=== PATIENT | male | born 1930 | race Caucasian/White ===

== ENCOUNTER 2019-08-21 02:16 | Observation (INO) | payer MEDICARE, OTHER ==
[~2019-08-21] VITALS: Ht 175.3 cm; Wt 96.4 kg
--- NOTE | ~2019-08-21 | OP ---
PATIENT NAME: FRANDY HUMPHREY MEDICAL RECORD: [id number] :[birth year] LOCATION:D.M2 D.2117 ADMISSION DATE:08/21/19 SURGEON: THANIA WHITFIELD MD DATE OF OPERATION: PROCEDURES: Left heart catheterization, selective coronary angiography, and right femoral artery approach. CATHETERS: A 5-Yoruba sheath, 5/4 left and right Freida, 5/4 pig. The procedure was well tolerated. The patient was returned to the munguia. Sheath removed. ExoSeal device placed. FINDINGS: Left ventriculography in 30-degree WELLS view: Normal wall motion, normal systolic function. CORONARY ANATOMY: LEFT MAIN: Left main is free of disease. LAD: Free of disease in the diagonal system. CIRCUMFLEX: Circumflex is free of disease in the marginal system. RIGHT CORONARY ARTERY: Dominant artery, gives rise to PDA, free of disease. IMPRESSION: Normal LV systolic function. Normal coronary anatomy. TRANSINT:[id number] Voice Confirmation ID: [id number] DOCUMENT ID: [id number] THANIA WHITFIELD MD CC: [id number] DICTATION DATE: 08/21/19 1448 REWRITE EDITOR: 08/22/19 0050 DIS IN 08/21/19 [facility] [address] [place] [id number]
--- NOTE | ~2019-08-21 | CN ---
PATIENT NAME:FRANDY KUNZ MEDICAL RECORD: [id number] : [birth year] LOCATION:D. D.2117 ADMIT DATE: 08/21/19 ACCOUNT: [id number] CONSULTING PHYSICIAN: THANIA WHITFIELD MD REFERRING PHYSICIAN: ANY DE LA GARZA MD DATE OF CONSULTATION: 08/21/2019 HISTORY OF PRESENT ILLNESS: Frandy Kunz is an 89-year-old gentleman with no known history of coronary artery disease. He has a history of arrhythmias, status post pacemaker placement, has a history of hypertension, hyperlipidemia, diabetes mellitus, admitted with angina, onset of rest, chest tightness, pressure radiating to the jaw, some dyspnea, questionable queasiness. We are asked to see him concerning his cardiovascular status. PAST MEDICAL HISTORY: Includes: 1. History of hypertension. 2. Sick sinus syndrome, status post pacemaker placement. 3. Hyperlipidemia. 4. Diabetes mellitus. ALLERGIES: KEFLEX, AMIODARONE, DILTIAZEM. SOCIAL HISTORY: Nonsmoker, nondrinker. Easily takes care of all his ADLs. Stays quite active, feeding horses. REVIEW OF SYSTEMS: The patient reports easy bruising but reports no swollen glands. The patient reports no fever, no night sweats, no significant weight gain, no significant weight loss. No significant exercise tolerance. The patient reports no dry eyes, no irritation, no vision change. Patient reports no difficulty hearing and no ear pain. Patient reports no frequent nose bleeds or nose and sinus problems. Patient reports on arm pain on exertion. No shortness of breath while lying down. No history of heart murmur. Patient reports no cough, no wheezing or coughing up blood. Patient reports no abdominal pain, no vomiting. Normal appetite. No diarrhea and not vomiting blood. No nausea and no constipation. Patient reports no incontinence. No difficulty urinating. No hematuria. No increased frequency. Patient reports no muscle aches. No weakness, no arthralgias, no back pain. No swelling of the extremities. Patient reports no abnormal mole, no jaundice, no rashes. Reports no loss of consciousness. No weakness and no numbness. No seizures, dizziness, or headaches. The patient reports no depression, no sleep disturbance, feeling safe in a relationship and no alcohol abuse. Patient reports on fatigue. Reports no runny nose or sinus pressure. No itching, no hives, and no frequent sneezing. PHYSICAL EXAMINATION: GENERAL: Pleasant gentleman, appears younger than stated age. VITAL SIGNS: Blood pressure 118/70, pulse 74 and regular. HEENT: Normocephalic, atraumatic. NECK: No bruits noted. HEART: Regular. LUNGS: Melgar clear. ABDOMEN: Soft, nontender. EXTREMITIES: Pulse 2+ with no edema. DIAGNOSTIC DATA: ECG shows nonspecific ST-T changes. CONSULT REPORT [id number] FRANDY KUNZ IMPRESSION: Acute coronary syndrome, multiple risk factors. PLAN: For angiography, intervention based on above. TRANSINT:[id number] Voice Confirmation ID: [id number] DOCUMENT ID: [id number] THANIA WHITFIELD MD CC: [id number] DICTATION DATE: 08/21/19 1050 STORM WINDOW INSTALLER: 08/21/19 1519 ADM IN [place] [id number] [place] [id number]
--- NOTE | ~2019-08-21 | HEMODYNAMI ---
PATIENT:FRANDY HUMPHREY MEDICAL RECORD: [id number] : [birth year] [facility] ADMISSION DATE: 08/21/19 Generatedon:08/21/201914:45 Patient name: FRANDY HUMPHREY Patient #: [id number] SSN: : 1930 Date of study: 08/21/2019 Page: Of Hemodynamic Procedure Report Patient Data Patient Demographics Procedure consent was obtained First Name: FRANDY Gender: Male Last Name: KAM : 1930 Patient #: [id number] Age: 89 year(s) Race: Unknown Additional ID: [id number] Contact details [address]: [address] [place] [address] State: [place] City: [place] Zip code: [address] Admission Admission Data Admission Date: 08/21/2019 Admission Time: 2:26 Arrival Date: 08/21/2019 Arrival Time: 2:26 Admit Source: Emergency Insurance Payor: Medicare department [facility] #: [id number] Room #: D.2117 Height (in.): 69.29 BSA: 2.12 (m2) Height (cm.): 176 BMI: 30.99 (kg/m2) Weight (lbs.): 211.64 Weight (kg.): 96 Procedure Procedure Types Cath Procedure Diagnostic Procedure [facility] w/Coronaries Sedation Charges Moderate Sedation up to 15 minutes Procedure Description Procedure Date Procedure Date: 08/21/2019 Procedure Start Time: 14:26 Procedure End Time: 14:40 Procedure Staff Name Function Ace Osei MD Performing Physician Madhuri Sauceda RT Monitor Rupali Kern RT Scrub Allegra Fournier RN Nurse Procedure Data Cath Procedure Fluoroscopy Diagnostic fluoroscopy Total fluoroscopy Time: 1.9 time: 1.9 min min Diagnostic fluoroscopy Total fluoroscopy dose: 533 dose: 533 mGy mGy Contrast Material Contrast Material Type Amount (ml) Isovue 300 48 Entry Location Entry Primary Successful Side Size Upsize Upsize Entry Closure Succes sful Closure Location (Fr) 1 (Fr) 2 (Fr) Remarks Device Remarks Femoral Right 5 Fr Exoseal artery Estimated blood loss: 5 ml Diagnostic catheters Device Type Used For End Catheter Placement MULTIPACK JL 4.0 5Fr Left Coronary catheter Angiography MULTIPACK 3DRC 5Fr Right Coronary catheter Angiography MULTIPACK Pigtail 5 Fr LV Angiography catheter Procedure Complications No complications Procedure Medications Medication Administration Route Dosage 0.9% NaCl I.V. 100 ml/hr Oxygen etCO2 Nasal cannula 2 l/min Lidocaine 2% added to field 20 Heparin Flush Bag added to field 2 bags (1000units/500ml NS) Versed I.V. 2 mg Fentanyl I.V. 50 mcg Hemodynamics Rest BSA: 2.12 (m2) O2 Consumption: Estimated: 253.36 (ml/min) O2 Consumption indexed : Estimated:119.51 (ml/min/m) Heart Rate: 87 (bpm) Pressure Samples Time Site Value (mmHg) Purpose Heart Use Rate(bpm) 14:33 LV 129/14,13 Snapshot 107 14:34 AO 115/54(78) Pullback 70 14:34 LV 114/10,13 Pullback 70 Gradients Valve Time Site 1 Site 2 Mean SEP/DFP Peak To Heart Use (mmHg) (sec/min) Peak Rate (mmHg) (bpm) Aortic 14:34 LV AO 0 17 0 70 114/10,13 115/54(78) Calculations Valve P-P Mean Valve Index Valve Source Name Gradient Area Flow (cm2) Aortic 0 0 0 0 Snapshots Pre Cath Intra NCS Post Cath Vital Signs Time Heart Resp SPO2 etCO2 NIBP (mmHg) Rhythm Pain Sedation Rate (ipm) (%) (mmHg) Status Level (bpm) 14:13:59 60 14 96 10 133/74(99) NSR 0 (11) 10(A) , No pain 14:18:54 70 12 98 10 130/82(113) NSR 0 (11) 10(A) , No pain 14:23:08 69 15 97 10 120/77(101) NSR 0 (11) 10(A) , No pain 14:27:20 61 12 93 0 114/68(94) NSR 0 (11) 10(A) , No pain 14:31:30 68 16 93 11.8 107/69(89) NSR 0 (11) 10(A) , No pain 14:35:36 69 10 94 14 116/72(92) NSR 0 (11) 10(A) , No pain 14:39:44 97 19.9 123/76(95) NSR 0 (11) 10(A) , No pain Medications Time Medication Route Dose Verified Delivered Reason Notes Eff ectiveness by by 14:13:01 0.9% NaCl I.V. 100 Ace Allegra used for ml/hr FarnazFrandy Fournier procedure MD RODRÍGUEZ 14:13:10 Oxygen etCO2 2 Ace Allegra used for Nasal l/min Claiborne Shantanu procedure cannula MD RODRÍGUEZ 14:13:16 Lidocaine 2% added 20ml Ace Ace for local to vial [facility] anesthetic field MD WEISS 14:13:20 Heparin Flush added 2 Ace Ace used for Bag to bags [facility] procedure (1000units/500ml field MD WEISS NS) 14:24:41 Versed I.V. 2 mg [address] Frandy Fournier sedation MD RODRÍGUEZ 14:24:51 Fentanyl I.V. 50 Ace Allegra for mcg St Frandy Fournier sedation MD RODRÍGUEZsoup person Log Time Note 13:52:16 Diagnostic Cath Status : Elective 13:56:59 Arrival Date: 08/21/2019 2:26:00 AM 13:57:29 Insurance Payor : Medicare 13:57:59 Admit Source: Emergency department 13:58:06 Patient Height : 69.29 inches 13:58:11 Patient Weight : 211.64 lbs 14:05:29 Rupali CHAMBERLAIN(R) sent for patient. Start room use. 14:05:30 Time tracking: Regular hours (M-F 7:00 - 5:00) 14:05:37 Plan of Care:Hemodynamics will remain stable., Cardiac rhythm will remain stable., Comfort level will be maintained., Respiratory function will remain adequate., Patient/ family verbilizes understanding of procedure., Procedure tolerated without complication., Recovers from procedure without complications.. 14:05:43 Patient received from Med II to [facility] 2 Alert and oriented. Tansferred to table in Supine position. 14:05:47 Signed procedure consent form obtained from patient. 14:05:48 Correct patient and procedure confirmed by team. 14:05:49 ECG and BP/O2 sat monitors applied to patient. 14:12:52 Vital chart was started 14:13:01 0.9% NaCl 100 ml/hr I.V. was administered by Allegra Fournier RN; used for procedure; Verbal order read back and verified. 14:13:10 Oxygen 2 l/min etCO2 Nasal cannula was administered by Allegra Fournier RN; used for procedure; Verbal order read back and verified. 14:13:16 Lidocaine 2% 20ml vial added to field was administered by Ace Osei MD; for local anesthetic; Verbal order read back and verified. 14:13:20 Heparin Flush Bag (1000units/500ml NS) 2 bags added to field was administered by Ace Osei MD; used for procedure; Verbal order read back and verified. 14:17:48 Full Disclosure recording started 14:18:31 H&P Date Dictated: 08/21/2019 New H&P dictated by physician.. 14:18:32 Pre-procedure instructions explained to patient. 14:18:33 Pre-op teaching completed and patient verbalized understanding. 14:18:34 Family in waiting room. 14:18:35 Patient NPO since Midnight. 14:18:38 Is the patient allergic to Iodine/contrast media? No. 14:18:39 Was the patient premedicated? Yes 14:18:45 Is patient on blood thinner?Yes 14:18:49 ACC The patient was administered the following blood thiners within the last 24 hours: Xarelto 14:18:52 Patient diabetic? Yes. 14:18:54 If diabetic: On Metformin? No 14:18:59 Previous problem with sedation/anesthesia? No ? 14:19:00 Snore? Yes 14:19:02 Deviated septum? No 14:19:03 Opens mouth fully? Yes 14:19:05 Sticks out tongue? Yes 14:19:10 Airway obstruction? No ? 14:19:21 Dentures? Yes OUT 14:19:27 Pre procedure: right dorsailis pedis pulse 2+ Normal; easily identifiable; not easily obliterated 14:19:30 Pre procedure: left dorsailis pedis pulse 2+ Normal; easily identifiable; not easily obliterated 14:19:33 Patient pain scale 0/10 ?. 14:19:40 IV patent on arrival in left forearm with 0.9% NaCl at [facility]. 14:19:42 Lab results completed and on chart. 14:23:20 Risk of Mortality: 1.9\ 14:23:25 Risk of blood transfusion: 2.3 14:23:30 Risk of YOHANNES: 8.5 14:23:37 Right groin area was prepped with chlora-prep and draped in sterile fashion 14:23:41 Alarms reviewed by R. N. 14:23:42 Sharps counted by scrub and verified by R.N. 14:23:43 Physician arrived 14::43 --------ALL STOP TIME OUT------ 14:23:44 Final Timeout: patient, procedure, and site verified with staff and physician. All members of the team are in agreement. 14:23:46 Right groin site verified by team. 14:23:50 Fire Safety Assessment: A--An alcohol-based skin anteseptic being used preoperatively., C--Open oxygen or nitrous oxide is being used., D--An ESU, laser, or fiber-optic light is being used. 14:23:53 Physical assessment completed. ASA score P 2 - A patient with mild systemic disease as per Ace Osei MD. 14:24:10 Maximum allowable contrast dose (3.7 X eGFR X 0.75)152 ml. 14:24:17 Sedation plan: IV Moderate Sedation Medication:Versed, Fentanyl 14:24:41 Versed 2 mg I.V. was administered by Allegra Fournier RN; for sedation; Verbal order read back and verified. 14:24:51 Fentanyl 50 mcg I.V. was administered by Allegra Fournier RN; for sedation; Verbal order read back and verified. 14:26:18 3a) 45-59 Moderately reduced kidney function. 14:26:34 Use device set Femoral Dx 14:26:36 ACIST Syringe (96747) opened to sterile field. 14:26:36 Bag Decanter () opened to sterile field. 14:26:37 Medline Cath Pack ([id number]) opened to sterile field. 14:26:38 ACIST Hand Control (74940) opened to sterile field. 14:26:39 ACIST Manifold (89897) opened to sterile field. 14:26:39 DIAGNOSTIC Multipack 5Fr catheter set (FB3416) opened to sterile field. 14:26:40 Tegaderm 4 x 4 (1626W) opened to sterile field. 14:26:41 SHEATH 5FR Greenwood (YUR663) opened to sterile field. 14:26:42 EMERALD Guide Wire (566-846) opened to sterile field. 14:26:47 Procedure started. 14:26:51 Local anesthetic to right femoral artery with Lidocaine 2% by Ace Osei MD.INITIAL ACCESS ONLY 14:27:00 A 5 Fr sheath was inserted into the Right Femoral artery 14:27:56 Baseline sample Acquired. 14:28:00 Zero performed for pressure channel P1 14:29:09 A MULTIPACK JL 4.0 5Fr catheter was advanced over the wire and used for Left Coronary Angiography. 14:29:44 LCA angiography performed. 14:29:48 Injector settings: Ml/sec: 3, Volume: 6, 14:31:25 Catheter removed. 14:31:29 A MULTIPACK 3DRC 5Fr catheter was advanced over the wire and used for Right Coronary Angiography. 14:31:55 RCA angiography performed. 14:31:58 Injector settings: Ml/sec: 3, Volume: 6, 14:32:01 ACCDominant side:Right 14:32:04 Catheter removed. 14:32:10 A MULTIPACK Pigtail 5 Fr catheter was advanced over the wire and used for LV Angiography. 14:33:37 LV hemodynamics recorded. 14:33:43 LV gram done using WELLS 14:33:50 EF : 55 % 14:34:01 Catheter removed. 14:34:04 EXOSEAL 5Fr (EX500) opened to sterile field. 14:35:45 Sheath removed intact; hemostasis achieved with Exoseal to the Right Femoral artery. 14:35:53 Procedure ended.(Physican Out) 14:37:09 Fluoroscopy time 01.90 minutes. 14:37:14 Fluoroscopy dose: 533 mGy 14:37:14 Flurop Dose total: 533 14:37:20 Dose Area Product 44051 mGy/cm. 14:37:40 Contrast amount:Isovue 300 48ml. 14:37:41 Maximum allowable dose exceeded? No. 14:37:42 Sharps counted by scrub and verified by R.N. 14:37:44 Insertion/operative site no bleeding no hematoma. 14:37:49 Post-op/insertion site Right Femoral artery dressed using a 4 x 4 and Tegaderm. 14:37:52 Post right femoral artery:stable 14:37:53 Post Procedure Pulses reassessed and unchanged 14:37:56 Post procedure rhythm: unchanged. 14:37:59 Estimated blood loss: 5 ml 14:38:04 Post procedure instruction explained to patient.Patient verbalizes understanding. 14:38:06 Patient needs reinforcement of post procedure teaching. 14:39:37 Procedure type changed to Cath procedure, Diagnostic procedure, LHC, C w/Coronaries, Sedation Charges, Moderate Sedation up to 15 minutes 14:39:39 Procedure and supply charges have been captured, reviewed, submitted and are correct. 14:39:46 Procedure Complication : No complications 14:39:49 Vital chart was stopped 14:39:52 [facility] Findings: MVD- MD will discuss options w/ pt 14:39:54 Operative report dictated upon procedure completion. 14:39:55 See physician's report for complete and final results. 14:39:59 Report given to Med II. 14:40:02 Patient transfered to Med II with Stretcher. 14:40:04 Procedure ended. 14:40:04 Full Disclosure recording stopped 14:40:17 End room use (Document Last) 14:44:46 End room use (Document Last) 14:45:05 End room use (Document Last) Device Usage Item Name Manufacture Quantity Catalog Hospital Part Current Minimal L ot# / Number Charge Number Stock Stock Serial# Code ACIST Acist 1 07191 085743 672687 652229 20 Syringe Medical (41591) Systems Inc Bag Microtek 1 2001S 440613 33706 863920 5 Decanter Medical Inc. () Medline Medline 1 [id number] 503065 43071 917062 5 Cath Pack ([id number]) ACIST Hand Acist 1 05619 076906 366291 648051 5 Control Medical (64564) Systems Inc ACIST Acist 1 84781 331185 464389 879314 5 Manifold Medical (75334) Systems Inc DIAGNOSTIC Cardinal 1 [id number] 463172 43627 820648 30 Merged With [facility] 5Fr catheter set (HA1097) Tegaderm 4 3M 1 1626W 719570 550365 913928 5 x 4 (1626W) SHEATH 5FR Terumo 1 ZCX992 341550 214433 658049 5 Greenwood (VXK444) EMERALD Cardinal 1 502-455 187976 295389 186455 5 Guide Wire Health (172-629) MULTIPACK Cardinal 1 187185 5 JL 4.0 5Fr Health catheter MULTIPACK Cardinal 1 644007 5 3DRC 5Fr Health catheter MULTIPACK Cardinal 1 847786 5 Pigtail 5 Health Fr catheter EXOSEAL 5Fr Cardinal 1 EX500 762906 644478 603565 10 (EX500) Health Signature Audit [place] Stage Time Signature Unsigned Intra-Procedure 08/21/2019 Madhuri Sauceda 2:44:46 PM RT(R) Intra-Procedure 08/21/2019 Allegra Fournier 2:45:05 PM RN Intra-Procedure 08/21/2019 Ace Alaniz 2:45:38 PM Frandy WEISS Signatures Performing Physician : Signature : Ace Osei MD Date : Time : Monitor : Madhuri Sauceda RT Signature : Date : Time : Nurse : Allegra Fournier RN Signature : Date : Time : [facility] [address] [place] [address]
[2019-08-21] MEDS ORDERED: FUROSEMIDE40 MG PO (02:21)
[2019-08-21] MEDS ORDERED: LIPITOR40 MG PO (02:21)
[2019-08-21] MEDS ORDERED: TOPROL XL25 MG PO (02:22)
[2019-08-21] MEDS ORDERED: ALBUTEROL SULF8.5 GM INH (02:22)
[2019-08-21] MEDS ORDERED: TREMFYA (02:22)
[2019-08-21] MEDS ORDERED: XARELTO20 MG PO (02:23)
[2019-08-21] MEDS ORDERED: GLUCOPHAGE500 MG PO (02:23)
[2019-08-21 02:29] LABS: BASOPHILS 0.2 % (0-2); EOSINOPHILS 1.1 % (0-7); HEMATOCRIT 40.6 % (42.0-54.0); HEMOGLOBIN 13.1 g/dL (13.5-17.5); IMMATURE GRANULOCYTES 0.3 % (0-5); LYMPHOCYTES 20.8 % (15-50); MCHC 32.3 g/dL (31.0-37.0); MCV 89.8 fL (80.0-100.0); MEAN PLATELET VOLUME 9.8 fL (7.4-10.4); MONOCYTES 7.6 % (2-11); PLATELET COUNT 137 10x3/uL (130-400); RBC 4.52 10x6/uL (4.20-6.10); WBC 9.7 10x3/uL (4.8-10.8)
[2019-08-21 02:40] LABS: CALC OSMOLALITY 278 mosm/kg (275-300); CARBON DIOXIDE 26.6 mmol/L (21.0-32.0); CHLORIDE - SERUM 101 mmol/L (98-107); CREATININE - SERUM 1.3 mg/dL (0.6-1.3); GLUCOSE 122 mg/dL (74-106); POTASSIUM - SERUM 4.3 mmol/L (3.5-5.1); SODIUM 137 mmol/L (136-145); UREA NITROGEN 25 mg/dL (7-18); eGFR NON AFRICAN AMERICAN 55 mL/min (90-120)
[2019-08-21 02:54] LABS: ALBUMIN 3.8 g/dL (3.4-5.0); ALKALINE PHOSPHATASE 176 U/L (46-116); ALT (SGPT) 25 U/L (10-68); BILIRUBIN - TOTAL 1.03 mg/dL (0.2-1.3); LIPASE 409 U/L (73-393); MAGNESIUM - SERUM 2.1 mg/dL (1.8-2.4); PRO BNP 563 pg/mL (0-450); PROTEIN - SERUM 7.3 g/dL (6.4-8.2)
[2019-08-21 02:56] LABS: TROPONIN-I < 0.017 ng/mL (0.000-0.060)
[2019-08-21 04:00] VITALS: BP 122/74; Ht 175.3 cm; Wt 96.4 kg
--- NOTE | 2019-08-21 04:10 | NUR ---
RECIEVED REPORT FROM [facility]. PT ARRIVED BY WHEELCHAIR. VSS, AAOX4, HARD OF HEARING. NO S/S OF DISTRESS. PT DENIES ANY NEED FOR PAIN. LEFT CHEST PACEMAKER NOTED. PT ON TELEMETRY 72 PACED. PIV LEFT HAND SL. INITIAL ASSESSMENT COMPLETED. PT PLACED NPO DUE TO CARDIOLOGY CONSULT. ALTHOUGH ICE CHIPS PROVIDED FOR DRY MOUTH. PT DENIES ANY FURTHER NEEDS AT THIS TIME. CL WITHIN REACH, BED IN LOW, SR UP X2.
[2019-08-21 04:30] VITALS: BP 122/74
[2019-08-21 08:31] VITALS: BP 118/70
[2019-08-21 08:50] LABS: CHOL - HDL RATIO 1.6 ratio (2.3-4.9); LDL-HDL RATIO 0.5 ratio (1.5-3.5)
--- NOTE | 2019-08-21 10:03 | NUR ---
CONSENTS SIGNED FOR [facility]. WILL CONT. PLAN OF CARE.
[2019-08-21 12:11] VITALS: BP 139/83
[2019-08-21] MEDS ORDERED: ALDACTONE25 MG PO (13:53)
[2019-08-21] MEDS ORDERED: LISINOPRIL2.5 MG PO (13:54)
[2019-08-21] MEDS ORDERED: LOPRESSOR25 MG PO (13:54)
--- NOTE | 2019-08-21 14:00 | NUR ---
PRE-OPS GIVEN. TO [facility] BY BED.
[2019-08-21 14:16] LABS: % SATURATION 18 % (15-55); IRON 71 ug/dl (35-150); TOTAL IRON BIND CAPACITY 374 ug/dl (260-445); UNSAT IRON BIND CAPACITY 303 ug/dl (150-375)
--- NOTE | 2019-08-21 15:03 | NUR ---
BACK FROM [facility] SALESPERSON. VS WNL. RIGHT GROIN STABLE WITHOUT BLEEDING OR HEMATOMA NOTED. WILL MONITOR.
--- NOTE | 2019-08-21 17:09 | NUR ---
BED REST UP. GROIN STABLE. IV AND TELEMETRY DCD. DC PLANS GIVEN. UNDERSTANDING VOICED.
--- NOTE | 2019-08-21 17:36 | NUR ---
ESCORTED TO CAR BY W/C.
--- NOTE | 2019-08-22 09:07 | MORECARE ---
CASE MANAGEMENT DISCHARGE SUMMARY PATIENT: FRANDY HUMPHREY UNIT: [id number] ADM DATE: 08/21/19 AGE: 89 : [birth year] SEX: M ROOM/BED: D.2117 AUTHOR: GLADYS MUHAMMAD PHYSICIAN: REFERRING PHYSICIAN: ANY DE LA GARZA MD DATE OF SERVICE: 08/22/19 Discharge Plan Patient Name: FRANDY HUMPHREY [facility] [facility] 1930 Planned Disposition: Home Anticipated Discharge Date: 08/21/19 Discharge Date: 08/21/2019 Expected LOS: 1 Initial Reviewer: [id number] Initial Review Date: 08/22/2019 Generated: 08/22/19 10:06 am Patient Name: FRANDY HUMPHREY Page [id number] at 0907 All edits/amendments must be made on the electronic document DICTATION DATE: 08/22/19905 [employer] COUNSELOR: DM 08/22/19905 RPT#: [id number] DC DATE:08/21/19 STATUS: DIS IN [facility] [address] [place] [address] END OF REPORT
== END 2019-08-21 17:37 | disposition home or self-care (01) ==
LOC: D.ER 02:16 → OBSVTIME 02:26 → D.M2 02:26
PROVIDERS: Family Medicine; Internal Medicine Interventional Cardiology; ADMIT Family Medicine; ATTEND Family Medicine
DX: I25.110 Atherosclerotic heart disease of native coronary artery with unstable angina pectoris (principal); I11.0 Hypertensive heart disease with heart failure; I50.9 Heart failure, unspecified; I48.20 Chronic atrial fibrillation, unspecified; D64.9 Anemia, unspecified; J44.9 Chronic obstructive pulmonary disease, unspecified; I71.4 Abdominal aortic aneurysm, without rupture; Z95.0 Presence of cardiac pacemaker